=== PATIENT | male | born 1960 | race Caucasian/White ===

== ENCOUNTER → 2016-10-05 | Outpatient (CLI) | payer BC ==
[~2016-10-05] MED LIST: ALPR-411 PO; AMLO-114 PO; CHOL20009 PO; KETO2CRE14 TOP; MULT-506 PO; OMEP40CA PO; SIMV20TA2 PO; ZNTT/150 PO
--- NOTE | 2016-10-05 08:48 | DIAGNOSTIC IMAGING REPORT ---
ABDOMINAL ULTRASOUND, RIGHT UPPER QUADRANT HISTORY: Right upper quadrant abdominal pain. Health maintenance. COMPARISON: Right upper quadrant ultrasound January 07, 2015. FINDINGS: Hepatic echogenicity is increased. This is similar to prior exam. 2 hepatic cysts measuring up to 1.1 cm are again noted. These are unchanged. There is no biliary ductal dilatation. The gallbladder is normal. No gallstones are identified. The pancreas is sonographically normal although the head and tail are slightly obscured. There is no right hydronephrosis. IMPRESSION: 1. Fatty liver, similar to prior exam. 2. No gallstones or biliary ductal dilatation. Electronically signed by: Josue Escalera M.D. 10/05/2016 8:47 AM Dictated Date/Time: 10/05/2016 8:45 AM
== END | disposition home or self-care (01) ==
LOC: C.ULTRBC 08:18
PROVIDERS: ATTEND Neuromusculoskeletal Medicine & OMM
DX: Z00.00 Encounter for general adult medical examination without abnormal findings (principal); R10.11 Right upper quadrant pain

== ENCOUNTER → 2017-03-04 | Outpatient (CLI) | payer BC ==
--- NOTE | 2017-03-04 09:31 | DIAGNOSTIC IMAGING REPORT ---
HEAD WITHOUT CONTRAST (CT) CT DOSE: 537.48 mGy.cm HISTORY: Mental status change Dizziness, headache TECHNIQUE: Multiaxial CT images of the head were performed without the use of intravenous contrast. A dose lowering technique was utilized adhering to the principles of ALARA. Comparison: None. Findings: The paranasal sinuses and mastoid air cells are clear. The calvarium and skull base are intact. The ventricles and sulci are within normal limits. There is no mass, hematoma, midline shift, or acute infarct. Impression: No acute intracranial abnormality. The above report was generated using voice recognition software. It may contain grammatical, syntax or spelling errors. Electronically signed by: Maurice Cruz M.D. 03/04/2017 9:30 AM Dictated Date/Time: 03/04/2017 9:29 AM
== END | disposition home or self-care (01) ==
LOC: C.CTS 09:17
PROVIDERS: ATTEND Neuromusculoskeletal Medicine & OMM
DX: H53.50 Unspecified color vision deficiencies (principal); R42 Dizziness and giddiness; R51 Headache